=== PATIENT | female | born 1970 | race Caucasian/White ===

== ENCOUNTER 2016-07-24 07:08 | Emergency (ER) | payer SELFPAY ==
[~2016-07-24] VITALS: Ht 162.6 cm; Wt 62.5 kg
[~2016-07-24 07:08] MED LIST: MECL25 PO; OXYC1SOL5 PO; ULTR50TA PO; Z.0.WALKERFRONT
[2016-07-24 07:11] VITALS: BP 113/64; PULSE 60; RESP 16; TEMP 98.6; O2SAT 100
[2016-07-24] MEDS ORDERED: IBUPROFEN 600 MG TAB PO ONE (07:45)
--- NOTE | 2016-07-24 07:53 | PD ---
HPI Chief Complaint: Musculoskeletal Complaint Time Seen by Provider: 07:35 Travel History International Travel<30 days: No Contact w/Intl Traveler<30days: No Traveled to known affect area: No History of Present Illness HPI Patient is a 46-year-old female with history of CVA as well as history of multiple sclerosis and optical neuritis, presents to emergency room with complaints of left-sided neck pain. Patient reports that she has history of multiple drop attacks, reports that on Monday, she felt as if she was going to black out while at home. Patient reports that she lowered herself to the ground so that she wouldn't hurt herself and thinks that she may have "passed out" while on her wood floors. Patient reports that when she woke up, she had increased pain to her neck. Reports that since Monday, the left side of her neck feels tight and hurts with range of motion of her neck. Patient did try taking acetaminophen last night with minimal relief of symptoms. Patient reports "I think I just may have pulled a muscle in neck." Patient denies headache or vision changes at this time. Patient denies chest pain or shortness of breath. Patient with no other complaints at this time. Patient currently is not on any anticoagulants. PFSH Past Medical History Anxiety: No Depression: No Cancer: No Cardiovascular Problems: No Cerebrovascular Accident: Yes (cva ) Diminished Hearing: No Endocrine: No Gastrointestinal Disorders: No Genitourinary: No Immune Disorder: Yes ( DIAGNOSED WITH MS) Musculoskeletal: No Neurologic: Yes (BRAIN, SPINE, NECK LESIONS, OPTIC NEURITIS, BRAIN HEMORRAGE) Psychiatric: Yes Reproductive: No Respiratory: No Immunizations Current: No Migraines: Yes ?: Not LMP: 3 weeks ago : 2 Para: 2 Tubal Ligation: Yes (1994) Past Surgical History Gynecologic Surgery: Yes (TUBAL LIGATION 1994) Other Surgery: No Family History Family History: Negative Social History Alcohol Use: Yes (RARE) Tobacco Use: Yes (QUIT JUN 2014) Substance Use: No Allergies-Medications (Allergen,Severity, Reaction): Coded Allergies: No Known Allergies (Unverified , 07/24/16) Reported Meds & Prescriptions Reported Meds & Active Scripts Active Reported Meclizine (Meclizine HCl) 25 Mg Chew 25 Mg CHEW DIRECTED PRN Gabapentin 300 Mg Cap 300 Mg PO BID Review of Systems General / Constitutional: No: Fever Eyes: No: Visual changes HENT: No: Headaches Cardiovascular: No: Chest Pain or Discomfort Respiratory: No: Shortness of Breath Gastrointestinal: No: Abdominal Pain Genitourinary: No: Dysuria Musculoskeletal: Positive: Limited ROM, Pain (left side of neck) Skin: No Rash Neurologic: No: Weakness Psychiatric: No: Depression Endocrine: No: Polydipsia Hematologic/Lymphatic: No: Easy Bruising Physical Exam Narrative GENERAL: NAD, nontoxic SKIN: Warm and dry. HEAD: Atraumatic. Normocephalic. EYES: No injection or drainage. ENT: Mucous membranes pink and moist. NECK: Trachea midline. No JVD. left sided paraspinal muscle tenderness, no midline cervical tenderness CARDIOVASCULAR: Regular rate and rhythm. No murmur appreciated. RESPIRATORY: No accessory muscle use. Clear to auscultation. Breath sounds equal bilaterally. GASTROINTESTINAL: Abdomen soft, non-tender, nondistended. MUSCULOSKELETAL: No obvious deformities. No clubbing. No cyanosis. No edema. NEUROLOGICAL: Awake and alert. No obvious cranial nerve deficits. Motor grossly within normal limits. Normal speech. Data Data Last Documented VS Vital Signs Date Time Temp Pulse Resp B/P Pulse Ox O2 Delivery O2 Flow Rate FiO2 07/24/16 07:11 98.6 60 16 113/64 100 Orders Spine, Cervical Compl([id number]) (07/24/16 ) Ibuprofen (Motrin) (07/24/16 07:45) MDM Medical Decision Making Medical Screen Exam Complete: Yes Emergency Medical Condition: Yes Interpretation(s) Vital Signs Date Time Temp Pulse Resp B/P Pulse Ox O2 Delivery O2 Flow Rate FiO2 07/24/16 07:11 98.6 60 16 113/64 100 Vital Signs Date Time Temp Pulse Resp B/P Pulse Ox O2 Delivery O2 Flow Rate FiO2 07/24/16 07:11 98.6 60 16 113/64 100 Differential Diagnosis cervical fracture, musculoskeletal pain, cervical muscle strain Narrative Course Patient is a 46-year-old female with history of multiple sclerosis and history of drop attacks, presents to emergency room with complaints of neck pain. Patient reports that she fell on Monday, reports that she woke up on the ground and had increased pain to the left side her neck. Patient reports that she continues to have pain to the left side her neck and has pain with range of motion to neck. Patient reports that she thinks that she has strained her neck muscles, requests muscles for pain as well as muscle relaxers. Patient with no midline tenderness on exam, will x-ray patient's c-spine to evaluate for any possible fractures. Patient is driving home today, discussed with her that I will give a dose of ibuprofen at this time. Reviewed results of x-ray with patient. Patient with most likely cervical muscle strain. Patient instructed to follow- up with a primary care doctor and return to ER as needed. Diagnosis Primary Impression: Cervical strain, acute Qualified Code: S16.1XXA - Cervical strain, acute, initial encounter Patient Instructions: General Instructions Additional Instructions: Please return to emergency room as needed Please follow-up with your primary care doctor Do not drive or operate heavy machinery while taking narcotic pain medications. Med/Other Pt SpecificInfo: Prescription(s) given Scripts Diazepam (Valium)5 Mg Tab5 Mg PO BID PRN (SPASM) #12 TAB Ref 0 Prov:Mandi Quinones DO 07/24/16 Ibuprofen 600 Mg [id number] Mg PO Q6H PRN (Pain/Inflammation) #40 TAB Ref 0 Prov:Mandi Quinones DO 07/24/16 Hydrocodone-Acetaminophen (Lortab)5-325 Mg Tab1 Tab PO Q6H PRN (PAIN) #10 TAB Ref 0 Prov:Mandi Quinones DO 07/24/16 Disposition: 01 DISCHARGE HOME Condition: Stable Mandi Quinones DO Jul 24, 2016 07:53
[2016-07-24] MEDS ORDERED: MECL25CH CHEW (07:54)
[2016-07-24] MEDS ORDERED: GABA300C5 PO (07:54)
--- NOTE | 2016-07-24 08:42 | RADHPO ---
EXAM DATE/TIME: 07/24/2016 07:52 [facility] COMPARISON: No previous studies available for comparison. INDICATIONS : Fell, has neck pain MEDICAL HISTORY : Multiple sclerosis. SURGICAL HISTORY : None. ENCOUNTER: Initial ACUITY: 4 - 6 days PAIN SCORE: 8/10 LOCATION: Bilateral neck FINDINGS: Five view examination was performed. There is normal alignment and curvature of the vertebral bodies down to the level of C7. No evidence of fracture or subluxation. Vertebral body height is normal. The disc spaces are maintained. The prevertebral soft tissues are of normal thickness. The atlanto -axial articulation is intact. The bony neural foramen are patent bilaterally. CONCLUSION: Normal examination for a patient of this age. Tapan Guthrie MD on July 24, 2016 at 8:29 Board Certified Radiologist. This report was verified electronically.
[2016-07-24] MEDS ORDERED: IBUP-232 PO (08:48)
[2016-07-24] MEDS ORDERED: DIAZ5 PO (08:48)
[2016-07-24] MEDS ORDERED: HYDR-3533 PO (08:48)
[2016-07-24 09:08] VITALS: RESP 16
== END 2016-07-24 09:06 | disposition home or self-care (01) ==
LOC: PHED 07:08
DX: S16.1XXA Strain of muscle, fascia and tendon at neck level, initial encounter (principal); X50.1XXA Overexertion from prolonged static or awkward postures, initial encounter; Y92.009 Unspecified place in unspecified non-institutional (private) residence as the place of occurrence of the external cause
CPT/HCPCS: 72050; 99283

== ENCOUNTER 2016-11-16 00:08 | Emergency (ER) | payer SELFPAY ==
[~2016-11-16] VITALS: Ht 162.6 cm; Wt 62.3 kg
[~2016-11-16 00:08] MED LIST changes: +DIAZ5 PO; +GABA300C5 PO; +HYDR-3533 PO; +IBUP-232 PO; -MECL25 PO; +MECL25CH CHEW; -OXYC1SOL5 PO; -ULTR50TA PO; -Z.0.WALKERFRONT
[2016-11-16 00:14] VITALS: BP 100/61; PULSE 65; RESP 16; TEMP 98; O2SAT 98
[2016-11-16 00:30] VITALS: BP 101/62; PULSE 77; RESP 19; O2SAT 99
--- NOTE | 2016-11-16 00:35 | PD ---
HPI Chief Complaint: Injury Time Seen by Provider: 00:31 Travel History International Travel<30 days: No Contact w/Intl Traveler<30days: No History of Present Illness HPI 46yo F with progressive MS presents to the ED with right foot and ankle pain for 4 days. Pt has numbness from her MS and thinks she didnt feel the foot so she plantarflexed her right foot 4 days ago and twisted her ankle. Denies any head trauma. Denies any chest pain, sob, n/v, abdominal pain, new numbness or weakness. Pt went to her PMD today and was told to come here because she needs an xray. PFSH Past Medical History Anxiety: No Depression: No Cancer: No Cardiovascular Problems: No Cerebrovascular Accident: Yes (cva ) Diminished Hearing: No Endocrine: No Gastrointestinal Disorders: No Genitourinary: No Immune Disorder: Yes ( DIAGNOSED WITH MS) Musculoskeletal: No Neurologic: Yes (BRAIN, SPINE, NECK LESIONS, OPTIC NEURITIS, BRAIN HEMORRAGE) Psychiatric: Yes Reproductive: No Respiratory: No Immunizations Current: No Migraines: Yes : 2 Para: 2 Tubal Ligation: Yes (1994) Past Surgical History Gynecologic Surgery: Yes (TUBAL LIGATION 1994) Other Surgery: Yes Social History Alcohol Use: Yes (RARE) Tobacco Use: Yes (QUIT JUN 2014) Substance Use: No Allergies-Medications (Allergen,Severity, Reaction): Coded Allergies: No Known Allergies (Unverified , 11/16/16) Reported Meds & Prescriptions Reported Meds & Active Scripts Active Acetaminophen Extra Strength (Acetaminophen) 500 Mg Tab 500 Mg PO Q6H PRN Reported Vicoprofen (Hydrocodone-Ibuprofen) 7.5-200 Mg Tab 1 Tab PO Q6H PRN Prozac (Fluoxetine HCl) 20 Mg Cap 20 Mg PO DAILY Meclizine (Meclizine HCl) 25 Mg Chew 25 Mg CHEW DIRECTED PRN Gabapentin 300 Mg Cap 300 Mg PO BID Review of Systems Except as stated in HPI: all other systems reviewed are Neg Physical Exam Narrative GENERAL: 46yo F not in distress. SKIN: Focused skin assessment warm/dry. HEAD: Atraumatic. Normocephalic. EYES: Pupils equal and round. No scleral icterus. No injection or drainage. ENT: No nasal bleeding or discharge. Mucous membranes pink and moist. NECK: Trachea midline. No JVD. CARDIOVASCULAR: Regular rate and rhythm. No murmur appreciated. RESPIRATORY: No accessory muscle use. Clear to auscultation. Breath sounds equal bilaterally. GASTROINTESTINAL: Abdomen soft, non-tender, nondistended. Hepatic and splenic margins not palpable. MUSCULOSKELETAL: RLE: DP2+. +ttp base of fifth metatarsal. No lateral or medial malleolus ttp. FROM right ankle. Sensation at baseline. NEUROLOGICAL: Awake and alert. No obvious cranial nerve deficits. Motor grossly within normal limits. Normal speech. PSYCHIATRIC: Appropriate mood and affect; insight and judgment normal. Data Data Last Documented VS Vital Signs Date Time Temp Pulse Resp B/P Pulse Ox O2 Delivery O2 Flow Rate FiO2 11/16/16 01:30 62 18 106/62 97 Room Air 11/16/16 00:14 98.0 Orders Foot, Limited (2vws) (11/16/16 ) Ankle, Limited (Ap&Lat) (11/16/16 ) Oxycodone-Acetamin 5-325 Mg (Percocet (11/16/16 01:30) MDM Medical Decision Making Medical Screen Exam Complete: Yes Emergency Medical Condition: Yes Differential Diagnosis Sprain vs. hairline fracture vs. contusion Narrative Course 46yo F with right foot/ankle pain after twisting it last monday. Pt sent here from PMD for xray. Xray right ankle and foot unremarkable. Pt given percocet which helped with pain. Post op shoe placed in right foot. Pt able to ambulate in the ED. Return precautions given. Diagnosis Primary Impression: Right foot pain Patient Instructions: General Instructions Departure Forms: Tests/Procedures Additional Instructions: Please follow up with your PMD or podiatry if pain still persists. Return to the ED if symptoms worsen. Med/Other Pt SpecificInfo: Prescription(s) given Scripts Acetaminophen (Acetaminophen Extra Strength)500 Mg [id number] Mg PO Q6H PRN (PAIN SCALE 1 TO 5) #20 TAB Ref 0 Prov:Shari Chen 11/16/16 Disposition: 01 DISCHARGE HOME Condition: Stable ChenShari smith November 16, 2016 00:35
[2016-11-16] MEDS ORDERED: MECL25CH CHEW (00:41)
[2016-11-16] MEDS ORDERED: PROZ20CA11 PO (00:41)
[2016-11-16] MEDS ORDERED: VICOTAB4 PO (00:41)
--- NOTE | 2016-11-16 00:59 | RADHPO ---
EXAM DATE/TIME: 11/16/2016 00:41 [facility] COMPARISON: No previous studies available for comparison. INDICATIONS : Right foot pain post fall. MEDICAL HISTORY : Multiple sclerosis. SURGICAL HISTORY : None. ENCOUNTER: Initial ACUITY: 3 days PAIN SCORE: 7/10 LOCATION: Right lateral foot FINDINGS: No definite fractures, or dislocations are identified. No definite lytic or sclerotic lesion is seen . The joint spaces are well maintained. CONCLUSION: Unremarkable study. Howard Leblanc MD on November 16, 2016 at 0:57 Board Certified Radiologist. This report was verified electronically.
--- NOTE | 2016-11-16 00:59 | RADHPO ---
EXAM DATE/TIME: 11/16/2016 00:40 [facility] COMPARISON: No previous studies available for comparison. INDICATIONS : Right ankle pain post fall. MEDICAL HISTORY : Multiple sclerosis. SURGICAL HISTORY : None. ENCOUNTER: Initial ACUITY: 3 days PAIN SCORE: 7/10 LOCATION: Right lateral ankle. FINDINGS: No definite fractures, or dislocations are identified. No definite lytic or sclerotic lesion is seen . The joint spaces are well maintained. CONCLUSION: Unremarkable study. Howard Leblanc MD on November 16, 2016 at 0:57 Board Certified Radiologist. This report was verified electronically.
[2016-11-16 01:30] VITALS: BP 106/62; PULSE 62; RESP 18; O2SAT 97
[2016-11-16] MEDS ORDERED: oxyCODONE/ACETAMINOPHEN 5 MG/325 MG TAB PO ONE (01:30)
[2016-11-16] MEDS ORDERED: ACET500T36 PO (01:54)
== END 2016-11-16 02:04 | disposition home or self-care (01) ==
LOC: PHED 00:08
DX: M79.671 Pain in right foot (principal); G35 Multiple sclerosis; Z79.899 Other long term (current) drug therapy; Z87.891 Personal history of nicotine dependence; Z86.73 Personal history of transient ischemic attack (TIA), and cerebral infarction without residual deficits
CPT/HCPCS: 73600; 73620; 99284

== ENCOUNTER 2017-08-08 21:28 | Emergency (ER) | payer MEDICARE ==
[~2017-08-08 21:28] MED LIST changes: +CELE200C PO; -DIAZ5 PO; -HYDR-3533 PO; +HYDR7.5T76 PO; -IBUP-232 PO; -MECL25CH CHEW; +PROZ20CA11 PO
[2017-08-08 21:37] VITALS: BP 123/68; PULSE 70; RESP 18; TEMP 98.2; O2SAT 98
[2017-08-08] MEDS ORDERED: SODIUM CHLORIDE 0.9% FLUSH 10 ML FLUSH IV FLUSH PRN (22:45)
[2017-08-08] MEDS ORDERED: ONDANSETRON HCL 4 MG/2 ML VIAL IV PUSH ONE (23:00)
[2017-08-08] MEDS ORDERED: KETOROLAC TROMETHAMINE 60 MG/2 ML (IM) VIAL IM ONE (23:00)
--- NOTE | 2017-08-08 23:16 | PD ---
HPI Chief Complaint: Complaint Time Seen by Provider: 22:37 Travel History International Travel<30 days: No Contact w/Intl Traveler<30days: No Traveled to known affect area: No History of Present Illness HPI Patient is a 47-year-old female presents emergency department for evaluation of right flank pain radiating down her right lower quadrant and groin, she also states that she has been having some hematuria, states that she thought was only going on for 3-5 days but her states been going on for closer to week. Patient states she has a history of kidney stones has not had one in some years but feels very similar. She has had some mild nausea but no vomiting no diarrhea no constipation. She states she is only noticing hematuria when she wipes after urinating but it also bernal when she pees. Patient has notable history of multiple sclerosis and is on opiates/ibuprofen product which is not causing significant relief for her. States spasmodic pain is gradually getting worse. She denies any chest pain shortness of breath or headache new weakness. PFSH Past Medical History Arthritis: Yes Anxiety: No Depression: No Cancer: No Cardiovascular Problems: No Cerebrovascular Accident: Yes (cva 2012/2013) Diminished Hearing: No Endocrine: No Gastrointestinal Disorders: No Genitourinary: No Immune Disorder: Yes ( DIAGNOSED WITH MS) Musculoskeletal: Yes (MS) Neurologic: Yes (BRAIN, SPINE, NECK LESIONS, OPTIC NEURITIS, BRAIN HEMORRAGE; MS) Psychiatric: No Reproductive: No Respiratory: No Immunizations Current: No Migraines: Yes ?: Not : 2 Para: 2 Tubal Ligation: Yes (1994) Past Surgical History Gynecologic Surgery: Yes (TUBAL LIGATION 1994) Other Surgery: Yes Social History Alcohol Use: Yes (RARE) Tobacco Use: No (3-4 cigarettes/day) Substance Use: No Allergies-Medications (Allergen,Severity, Reaction): Coded Allergies: No Known Allergies (Unverified , 04/05/17) Reported Meds & Prescriptions Reported Meds & Active Scripts Active Reported Celebrex (Celecoxib) 200 Mg Cap 200 Mg PO DAILY Hydrocodone-Ibuprofen 7.5-200 Mg Tab 1 Tab PO Q6H PRN Prozac (Fluoxetine HCl) 20 Mg Cap 20 Mg PO DAILY Gabapentin 300 Mg Cap 300 Mg PO BID Review of Systems Except as stated in HPI: all other systems reviewed are Neg Physical Exam Narrative GENERAL: Well-developed well-nourished, in no obvious distress, quite pleasant, drinking coffee per SKIN: Focused skin assessment warm/dry. HEAD: Atraumatic. Normocephalic. EYES: Pupils equal and round. No scleral icterus. No injection or drainage. ENT: No nasal bleeding or discharge. Mucous membranes pink and moist. NECK: Trachea midline. No JVD. CARDIOVASCULAR: Regular rate and rhythm. No murmur appreciated. RESPIRATORY: No accessory muscle use. Clear to auscultation. Breath sounds equal bilaterally. GASTROINTESTINAL: Abdomen soft, non-tender, nondistended. Hepatic and splenic margins not palpable. No CVA tenderness, Wilson sign negative, Rovsing sign negative, abdomen soft no rebound no percussive tenderness MUSCULOSKELETAL: No obvious deformities. No clubbing. No cyanosis. No edema. NEUROLOGICAL: Awake and alert. No obvious cranial nerve deficits. Motor grossly within normal limits. Normal speech. PSYCHIATRIC: Appropriate mood and affect; insight and judgment normal. Data Data Last Documented VS Vital Signs Date Time Temp Pulse Resp B/P (MAP) Pulse Ox O2 Delivery O2 Flow Rate FiO2 08/09/17 00:05 98 Room Air 08/08/17 23:49 52 16 104/52 (69) 08/08/17 21:37 98.2 Orders Orders Complete Blood Count With Diff (08/08/17 22:37) Lipase (08/08/17 22:37) Urinalysis - C+S If Indicated (08/08/17 22:37) Iv Access Insert/Monitor (08/08/17 22:37) Ecg Monitoring (08/08/17 22:37) Oximetry (08/08/17 22:37) Sodium Chloride 0.9% Flush (Ns Flush) (08/08/17 22:45) Ed Urine Pregnancytest Poc (08/08/17 22:37) Ketorolac Inj (Toradol Inj) (08/08/17 23:00) Ondansetron Inj (Zofran Inj) (08/08/17 23:00) Basic Metabolic Panel (Bmp) (08/08/17 23:16) Hepatic Functional Panel (08/08/17 23:16) Ct Abd/Pel W/O Iv Contrast (08/09/17 ) Labs Laboratory Tests Test 08/08/17 23:49 White Blood Count 8.3 TH/MM3 Red Blood Count 4.05 MIL/MM3 Hemoglobin 13.4 GM/DL Hematocrit 38.2 % Mean Corpuscular Volume 94.5 FL Mean Corpuscular Hemoglobin 33.0 PG Mean Corpuscular Hemoglobin Concent 35.0 % Red Cell Distribution Width 13.4 % Platelet Count 194 TH/MM3 Mean Platelet Volume 8.8 FL Neutrophils (%) (Auto) 56.8 % Lymphocytes (%) (Auto) 32.7 % Monocytes (%) (Auto) 7.2 % Eosinophils (%) (Auto) 2.6 % Basophils (%) (Auto) 0.7 % Neutrophils # (Auto) 4.6 TH/MM3 Lymphocytes # (Auto) 2.7 TH/MM3 Monocytes # (Auto) 0.6 TH/MM3 Eosinophils # (Auto) 0.2 TH/MM3 Basophils # (Auto) 0.1 TH/MM3 CBC Comment DIFF FINAL Differential Comment Urine pH 5.5 Urine Protein NEG mg/dL Urine Glucose (UA) NEG mg/dL Urine Ketones NEG mg/dL Urine Occult Blood LARGE Urine Nitrite NEG Urine Bilirubin NEG Urine Leukocyte Esterase NEG Blood Urea Nitrogen 8 MG/DL Creatinine 0.70 MG/DL Random Glucose 91 MG/DL Total Protein 7.2 GM/DL Albumin 3.9 GM/DL Calcium Level 8.4 MG/DL Alkaline Phosphatase 86 U/L Aspartate Amino Transf (AST/SGOT) 14 U/L Alanine Aminotransferase (ALT/SGPT) 19 U/L Total Bilirubin 0.4 MG/DL Direct Bilirubin 0.1 MG/DL Sodium Level 138 MEQ/L Potassium Level 3.6 MEQ/L Chloride Level 105 MEQ/L Carbon Dioxide Level 27.6 MEQ/L Anion Gap 5 MEQ/L Estimat Glomerular Filtration Rate 89 ML/MIN Indirect Bilirubin 0.3 MG/DL Lipase 133 U/L [facility] Medical Decision Making Medical Screen Exam Complete: Yes Emergency Medical Condition: Yes Differential Diagnosis Kidney stone, cholecystitis unlikely, acute abdomen likely, pancreatitis, appendicitis highly unlikely Narrative Course Patient room to the emergency department, abdomen is fairly benign, sign symptoms consistent with a kidney stone I think she can be managed as such. Given her poor past medical problems I suggested the basic labs are warranted at this time. Toradol has been ordered, patient will be discussed with Dr. Chen at midnight shift change to follow-up laboratory workup continue workup as necessary disposition the patient appropriately. Unless there is something of concern in her reassessment or abnormal lab work I do not think the patient needs to have a CAT scan of her abdomen at this time Sean Eduardo MD Aug 08, 2017 23:16
[2017-08-08 23:49] VITALS: BP 104/52; PULSE 52; RESP 16; O2SAT 98
[2017-08-09 00:05] VITALS: O2SAT 98
--- NOTE | 2017-08-09 00:11 | PD ---
Physical Exam Narrative Received sign out to follow up labs and UA. 47yo F with right sided flank pain for a few days. Pt has dysuria and hematuria. Denies any fever but has nausea and no vomiting. Pt is tender on my exam so will do CT a/p-. Labs reviewed, no leukocytosis. Creatinine normal. Lipase normal. UA showed large blood. no leukocyte. CT a/p showed simple cyst right ovary. No inflammatory changes in abdomen or pelvis. Pt given zofran and toradol with improvement. Pt tolerating PO. Return precautions given. Pt to follow up with PMD. Data Data Last Documented VS Vital Signs Date Time Temp Pulse Resp B/P (MAP) Pulse Ox O2 Delivery O2 Flow Rate FiO2 08/09/17 00:05 98 Room Air 08/08/17 23:49 52 16 104/52 (69) 08/08/17 21:37 98.2 Orders Orders Complete Blood Count With Diff (08/08/17 22:37) Lipase (08/08/17 22:37) Urinalysis - C+S If Indicated (08/08/17 22:37) Iv Access Insert/Monitor (08/08/17 22:37) Ecg Monitoring (08/08/17 22:37) Oximetry (08/08/17 22:37) Sodium Chloride 0.9% Flush (Ns Flush) (08/08/17 22:45) Ed Urine Pregnancytest Poc (08/08/17 22:37) Ketorolac Inj (Toradol Inj) (08/08/17 23:00) Ondansetron Inj (Zofran Inj) (08/08/17 23:00) Basic Metabolic Panel (Bmp) (08/08/17 23:16) Hepatic Functional Panel (08/08/17 23:16) Ct Abd/Pel W/O Iv Contrast (08/09/17 ) Labs Laboratory Tests Test 08/08/17 23:49 White Blood Count 8.3 TH/MM3 Red Blood Count 4.05 MIL/MM3 Hemoglobin 13.4 GM/DL Hematocrit 38.2 % Mean Corpuscular Volume 94.5 FL Mean Corpuscular Hemoglobin 33.0 PG Mean Corpuscular Hemoglobin Concent 35.0 % Red Cell Distribution Width 13.4 % Platelet Count 194 TH/MM3 Mean Platelet Volume 8.8 FL Neutrophils (%) (Auto) 56.8 % Lymphocytes (%) (Auto) 32.7 % Monocytes (%) (Auto) 7.2 % Eosinophils (%) (Auto) 2.6 % Basophils (%) (Auto) 0.7 % Neutrophils # (Auto) 4.6 TH/MM3 Lymphocytes # (Auto) 2.7 TH/MM3 Monocytes # (Auto) 0.6 TH/MM3 Eosinophils # (Auto) 0.2 TH/MM3 Basophils # (Auto) 0.1 TH/MM3 CBC Comment DIFF FINAL Differential Comment Urine Color YELLOW Urine Turbidity CLEAR Urine pH 5.5 Urine Specific [place] 1.016 Urine Protein NEG mg/dL Urine Glucose (UA) NEG mg/dL Urine Ketones NEG mg/dL Urine Occult Blood LARGE Urine Nitrite NEG Urine Bilirubin NEG Urine Leukocyte Esterase NEG Urine RBC 4-9 /hpf Urine Squamous Epithelial Cells 0-5 /hpf Urine Amorphous Sediment SMALL Urine Mucus OCC /lpf Microscopic Urinalysis Comment CULT NOT INDICATED Blood Urea Nitrogen 8 MG/DL Creatinine 0.70 MG/DL Random Glucose 91 MG/DL Total Protein 7.2 GM/DL Albumin 3.9 GM/DL Calcium Level 8.4 MG/DL Alkaline Phosphatase 86 U/L Aspartate Amino Transf (AST/SGOT) 14 U/L Alanine Aminotransferase (ALT/SGPT) 19 U/L Total Bilirubin 0.4 MG/DL Direct Bilirubin 0.1 MG/DL Sodium Level 138 MEQ/L Potassium Level 3.6 MEQ/L Chloride Level 105 MEQ/L Carbon Dioxide Level 27.6 MEQ/L Anion Gap 5 MEQ/L Estimat Glomerular Filtration Rate 89 ML/MIN Indirect Bilirubin 0.3 MG/DL Lipase 133 U/L [facility] Supervised Visit with GORAN: No Diagnosis Primary Impression: Hematuria Qualified Codes: R31.9 - Hematuria, unspecified Patient Instructions: General Instructions Departure Forms: Tests/Procedures Additional Instruction: Please follow up with your primary care physician in 1-2 days. Return to the ED if symptoms worsen. Med/Other Pt SpecificInfo: No Change to Meds Disposition: 01 DISCHARGE HOME Condition: Stable Shari Chen DO Aug 09, 2017 00:11
[2017-08-09 00:19] LABS: AUTOMATED NEUTROPHIL # 4.6 TH/MM3 (1.8-7.7); BASOPHIL # 0.1 TH/MM3 (0-0.2); BASOPHIL % 0.7 % (0.0-2.0); EOSINOPHIL # 0.2 TH/MM3 (0-0.4); EOSINOPHIL % 2.6 % (0.0-4.0); HEMATOCRIT 38.2 % (35.0-46.0); HEMOGLOBIN 13.4 GM/DL (11.6-15.3); LYMPH % 32.7 % (9.0-44.0); LYMPHOCYTE # 2.7 TH/MM3 (1.0-4.8); MEAN CELL VOLUME 94.5 FL (80.0-100.0); MEAN PLATELET VOLUME 8.8 FL (7.0-11.0); MONO % 7.2 % (0.0-8.0); MONOCYTE # 0.6 TH/MM3 (0-0.9); NEUT % 56.8 % (16.0-70.0); PLATELET COUNT 194 TH/MM3 (150-450); RED BLOOD COUNT 4.05 MIL/MM3 (4.00-5.30); RED CELL DISTRIBUTION WIDTH 13.4 % (11.6-17.2); WHITE BLOOD COUNT 8.3 TH/MM3 (4.0-11.0)
[2017-08-09 00:30] LABS: CALCIUM 8.4 MG/DL (8.5-10.1)
[2017-08-09 00:31] LABS: ALBUMIN 3.9 GM/DL (3.4-5.0); BICARBONATE 27.6 MEQ/L (21.0-32.0); BILIRUBIN, URINE NEG (NEG); BLOOD, URINE LARGE (NEG); GLUCOSE,URINE NEG (NEG); KETONE, URINE NEG (NEG); NITRITE,URINE NEG (NEG); PH, URINE 5.5 (5.0-8.5); URINE LEUKOCYTE ESTERASE NEG (NEG)
[2017-08-09 00:33] LABS: DIRECT BILIRUBIN ADULT 0.1 MG/DL (0.0-0.2)
[2017-08-09 00:34] LABS: CREATININE 0.7 MG/DL (0.50-1.00)
[2017-08-09 00:35] LABS: INDIRECT BILIRUBIN 0.3 MG/DL (0.0-0.8); TOTAL BILIRUBIN ADULT 0.4 MG/DL (0.2-1.0); TOTAL PROTEIN 7.2 GM/DL (6.4-8.2)
[2017-08-09 00:43] LABS: URINE COLOR YELLOW (YELLW/STRAW)
[2017-08-09 00:44] LABS: AMORPHOUS SEDIMENT, URINE SMALL; MUCUS URINE OCC /lpf (OCC); SQUAMOUS EPITHELIAL CELL URINE 0-5 /hpf (0-5)
--- NOTE | 2017-08-09 01:25 | RADRPT ---
EXAM DATE/TIME: 08/09/2017 00:50 [facility] COMPARISON: CT ABDOMEN & PELVIS W CONTRAST, December 12, 2014, 20:16. INDICATIONS : Right lower quadrant and flank pain. ORAL CONTRAST: No oral contrast ingested. RADIATION DOSE: 8.65 CTDIvol (mGy) MEDICAL HISTORY : None SURGICAL HISTORY : Tubal ligation. ENCOUNTER: Initial ACUITY: 2 days PAIN SCALE: 5/10 LOCATION: Right lower quadrant flank TECHNIQUE: Volumetric scanning of the abdomen and pelvis was performed. Using automated exposure control and ad justment of the mA and/or kV according to patient size, radiation dose was kept as low as reasonably achievable to obtain optimal diagnostic quality images. DICOM format image data is available electro nically for review and comparison. FINDINGS: Kidneys, spleen, pancreas, adrenal glands, liver, gallbladder are unremarkable. Urinary bladder, uter us unremarkable. Right adnexal cyst measuring 2.3 cm, simple in appearance. Left ovary not clearly se en. There is no evidence for bowel obstruction, free fluid, or free air. Stomach unremarkable. Append ix normal. Terminal ileum normal. No adenopathy or aneurysm. There is stable scarring at the left francisco g base. Osseous structures are intact. CONCLUSION: 1. Simple cyst right ovary. 2. No inflammatory changes in the abdomen or pelvis. Everette Tamayo MD on August 09, 2017 at 1:20 Board Certified Radiologist. This report was verified electronically.
[2017-08-09 02:45] VITALS: BP 103/68
== END 2017-08-09 02:47 | disposition home or self-care (01) ==
LOC: PHED 21:28
DX: R31.9 Hematuria, unspecified (principal); G35 Multiple sclerosis; M19.90 Unspecified osteoarthritis, unspecified site; Z86.73 Personal history of transient ischemic attack (TIA), and cerebral infarction without residual deficits; Z72.0 Tobacco use
CPT/HCPCS: 74176; 80048; 80076; 81001; 83690; 84703; 85025; 96372; 96374; 99284; J1885; J2405